=== PATIENT | female | born 1975 | race Hispanic/Latino ===

== ENCOUNTER 2020-10-02 05:32 | Inpatient (IN) | payer BC ==
[2020-09-28 11:45] LABS: BASOPHILS % 0.3 % (0.0-1.0); EOSINOPHILS # (AUTO) 0.1 (0.0-0.4); EOSINOPHILS % 0.5 % (0.0-6.0); HEMATOCRIT 38.4 % (38.2-49.6); HEMOGLOBIN 12.6 g/dL (14.0-18.0); LYMPHOCYTES # (AUTO) 2.5 (1.0-3.2); LYMPHOCYTES % 18.6 % (18.0-39.1); MEAN CORPUSCULAR HEMOGLOBIN 27.9 pg (28-32); MEAN CORPUSCULAR HGB CONC 32.8 g/dL (31-35); MEAN CORPUSCULAR VOLUME 85.1 fL (81-99); MONOCYTES # (AUTO) 0.4 (0.2-0.8); MONOCYTES % 2.8 % (4.4-11.3); NEUTROPHILS # (AUTO) 10.4 (2.1-6.9); NEUTROPHILS % 77.3 % (38.7-80.0); PLATELET COUNT 384 x10e3/uL (140-360); RED BLOOD COUNT 4.51 x10e6/uL (4.3-5.7); RED CELL DISTRIBUTION WIDTH 14.1 % (11.7-14.4)
[2020-09-28 11:59] LABS: BLOOD UREA NITROGEN 13 mg/dL (7-26); BUN/CREATININE RATIO 19 (6-25); CALCIUM 9.2 mg/dL (8.4-10.2); CARBON DIOXIDE 23 mmol/L (22-29); CHLORIDE 102 mmol/L (98-107); CREATININE, SERUM 0.69 mg/dL (0.72-1.25); EST GLOMERULAR FILTRATION RATE > 60 ML/MIN (60-); GLUCOSE 125 mg/dL (74-118); SODIUM 136 mmol/L (136-145)
[~2020-10-02] VITALS: Ht 157.5 cm; Wt 127.0 kg
[~2020-10-02 05:32] MED LIST: DUONEB INH; HUMALOG100 UNIT/1 SC; METFORMIN HCL500 MG PO; MULTI-VITAMIN1 EACH PO; TOUJEO SOL300 UNIT/1 SC; TRULICITY1.5 MG/0.5 SC; VIT C PO; ZINC SULFATE220 MG PO
[2020-10-02] MEDS ORDERED: AVAPRO150 MG (06:28)
[2020-10-02] MEDS ORDERED: CEFAZOLIN SOD 1 GM/NS 50ML 100 ML IV ONE (06:31)
[2020-10-02] MEDS ORDERED: BUPIVACAINE 0.25% 30ML SDV ONE (06:52)
[2020-10-02] MEDS ORDERED: LIDOCAINE HCL (LTA) 4 ML SOLN ONE (07:06)
[2020-10-02] MEDS ORDERED: SCOPOLAMINE 1.5 MG PATCH ONE (07:07)
[2020-10-02] MEDS ORDERED: SUGAMMADEX SODIUM 200 MG/2 ML VIAL IV ONE (08:13)
[2020-10-02] MEDS ORDERED: ONDANSETRON HCL INJ 2MG/ML 2ML 2 MG/ML VIAL ONE ×2 (09:00→13:18)
[2020-10-02] MEDS ORDERED: METOCLOPRAMIDE HCL 10 MG/2ML VIAL ONE (09:29)
[2020-10-02] MEDS ORDERED: FENTANYL CITRATE/PF 100MCG/2 ML INJ ONE (09:38)
[2020-10-02] MEDS ORDERED: PROMETHAZINE HCL (IM) 25 MG/ML VIAL IM ONE (10:35)
[2020-10-02] MEDS ORDERED: LIDOCAINE HCL 2% JELLY 5 ML TUBE ONE (13:18)
[2020-10-02] MEDS ORDERED: GLYCOPYRROLATE INJ 0.2 MG/ML VIAL ONE (13:18)
[2020-10-02] MEDS ORDERED: ROCURONIUM BROMIDE 10 MG/ML 5ML VIAL IV ONE (13:18)
[2020-10-02] MEDS ORDERED: PROPOFOL IV EMULSION 10 MG/ML 20 ML VIAL ONE (13:18)
[2020-10-02] MEDS ORDERED: NEOSTIGMINE 1 MG/ML 10ML VIAL ONE (13:18)
[2020-10-02] MEDS ORDERED: SEVOFLURANE INHAL SOLN 250 ML PEN BTL ONE (13:18)
[2020-10-02] MEDS ORDERED: LIDOCAINE HCL 2% LOCAL INJ 5 ML SDV VIAL INJ ONE (13:18)
[2020-10-02] MEDS ORDERED: HYDROMORPHONE 1MG/1ML INJ ONE (14:16)
[2020-10-02 17:10] VITALS: BP 127/82
[2020-10-02] MEDS ORDERED: DEXTROSE 50% SYRINGE 50 ML IV PRN (17:30)
[2020-10-02] MEDS ORDERED: ONDANSETRON HCL INJ 2MG/ML 2ML 2 MG/ML VIAL IV PRN (18:30)
[2020-10-02] MEDS: LACTATED RINGER'S 1,000 ML INJ SCH (18:37)
[2020-10-02] MEDS: MORPHINE SULFATE 2 MG/ML SYR 1ML IV PRN ×2 (18:37→22:57)
[2020-10-02 20:00] VITALS: BP 146/71
[2020-10-02] MEDS: INSULIN LISPRO 100 UNIT/1 ML 3ML VIAL SQ SCH (21:00)
[2020-10-02] MEDS: ENOXAPARIN SOD INJ 40 MG/0.4 ML SYR SC SCH (21:40)
[2020-10-02] MEDS: FAMOTIDINE 20 MG/2 ML VIAL IV SCH (21:40)
[2020-10-02 21:55] VITALS: BP 146/71
[2020-10-02] MEDS ORDERED: METOPROLOL TARTRATE INJ 1 MG/ML VIAL IV PRN (22:30)
[2020-10-02] MEDS: ONDANSETRON HCL INJ 2MG/ML 2ML 2 MG/ML VIAL IV PRN (22:57)
[2020-10-03] MEDS: MORPHINE SULFATE 2 MG/ML SYR 1ML IV PRN ×3 (03:45→13:12)
[2020-10-03] MEDS: ONDANSETRON HCL INJ 2MG/ML 2ML 2 MG/ML VIAL IV PRN ×2 (03:45→09:55)
[2020-10-03] MEDS: LACTATED RINGER'S 1,000 ML INJ SCH ×2 (03:51→10:24)
[2020-10-03 04:00] VITALS: BP 128/85
[2020-10-03 06:20] LABS: BASOPHILS # (AUTO) 0.1 (0.0-0.1); BASOPHILS % 0.3 % (0.0-1.0); HEMATOCRIT 38.4 % (34.2-44.1); HEMOGLOBIN 12.8 g/dL (12.0-16.0); LYMPHOCYTES # (AUTO) 2.1 (1.0-3.2); LYMPHOCYTES % 11.9 % (18.0-39.1); MEAN CORPUSCULAR HEMOGLOBIN 28.1 pg (28-32); MEAN CORPUSCULAR HGB CONC 33.3 g/dL (31-35); MEAN CORPUSCULAR VOLUME 84.4 fL (81-99); MONOCYTES # (AUTO) 0.7 (0.2-0.8); MONOCYTES % 3.9 % (4.4-11.3); NEUTROPHILS # (AUTO) 14.6 (2.1-6.9); NEUTROPHILS % 83.4 % (38.7-80.0); PLATELET COUNT 363 x10e3/uL (140-360); RED BLOOD COUNT 4.55 x10e6/uL (3.6-5.1); RED CELL DISTRIBUTION WIDTH 13.8 % (11.7-14.4)
[2020-10-03 06:58] LABS: ANION GAP 17.8 mmol/L (8-16); BLOOD UREA NITROGEN 7 mg/dL (7-26); BUN/CREATININE RATIO 11 (6-25); CALCIUM 8.8 mg/dL (8.4-10.2); CARBON DIOXIDE 20 mmol/L (22-29); CHLORIDE 103 mmol/L (98-107); CREATININE, SERUM 0.66 mg/dL (0.57-1.11); EST GLOMERULAR FILTRATION RATE > 60 ML/MIN (60-); GLUCOSE 144 mg/dL (74-118); MAGNESIUM 1.8 MG/DL (1.3-2.1); POTASSIUM 3.8 mmol/L (3.5-5.1); SODIUM 137 mmol/L (136-145)
[2020-10-03] MEDS ORDERED: HYDROCODONE/APAP 7.5MG-325MG 1 EA TAB PO PRN (07:00)
[2020-10-03] MEDS: INSULIN LISPRO 100 UNIT/1 ML 3ML VIAL SQ SCH ×2 (07:30→11:12)
[2020-10-03 07:43] VITALS: BP 145/75
[2020-10-03 07:47] VITALS: BP 145/75
[2020-10-03] MEDS: FAMOTIDINE 20 MG/2 ML VIAL IV SCH (08:06)
[2020-10-03] MEDS: ENOXAPARIN SOD INJ 40 MG/0.4 ML SYR SC SCH (08:06)
[2020-10-03] MEDS ORDERED: MULTIVITAMINS/MINERALS TAB PO SCH (09:00)
[2020-10-03] MEDS ORDERED: METFORMIN HCL 500 MG TAB PO SCH (09:00)
[2020-10-03] MEDS ORDERED: IRBESARTAN 150 MG TAB PO SCH (09:00)
[2020-10-03] MEDS ORDERED: INSULIN GLARGINE 100 UNITS/ML VIAL SQ SCH (09:00)
[2020-10-03] MEDS ORDERED: ZINC SULFATE 220 MG CAP PO SCH (09:00)
[2020-10-03 11:17] VITALS: BP 140/80
[2020-10-03] MEDS ORDERED: ONDANSETRON HCL 4 MG ORAL DISINTEGRATING TAB PO PRN (16:00)
[2020-10-03] MEDS ORDERED: FAMOTIDINE 20 MG TAB PO SCH (21:00)
== END 2020-10-03 15:50 | disposition home or self-care (01) | DRG 621 ==
LOC: OR 05:32 → EDSEX 07:30 → PACU V 09:04 → MED/SURG 16:45
PROVIDERS: ADMIT Internal Medicine; ATTEND Internal Medicine
PROC: 0DB64Z3 Excision of Stomach, Percutaneous Endoscopic Approach, Vertical (ICD-10-PCS; principal; 2020-10-02 07:30)
DX: E66.01 Morbid (severe) obesity due to excess calories (principal); E11.9 Type 2 diabetes mellitus without complications; Z68.43 Body mass index [BMI] 50.0-59.9, adult; I10 Essential (primary) hypertension; Z20.828 Contact with and (suspected) exposure to other viral communicable diseases; Z86.19 Personal history of other infectious and parasitic diseases
CPT/HCPCS: 36415; 71046; 80048; 81025; 82948; 83735; 84100; 84443; 85025; 93005; 96361; J0690; J1170; J1650; J1815; J2001; J2270; J2405; J2550; J2710; J2765; J3010; J7121; U0002